=== PATIENT | male | born 1960 | race Caucasian/White ===

== ENCOUNTER → 2018-08-28 | Outpatient (REF) | payer MEDICARE, MEDICAID ==
[2018-08-28 18:21] LABS: BASO % 0.7 % (0.0-1.0); EOS # 0.1 10^3/uL (0.0-0.50); EOS % 2.3 % (0.0-3.0); HEMATOCRIT 43.2 % (42.0-52.0); HEMOGLOBIN 14.1 g/dl (13.5-17.5); IMMATURE GRANULOCYTE % 0.7 % (0-3.0); LYMPH # 1.4 10^3/uL (1.5-4.5); LYMPH % 25.1 % (24.0-44.0); MEAN CORPUSCULAR HEMOGLOBIN 30.1 pg (27.0-33.0); MEAN CORPUSCULAR HGB CONC 32.6 g/dl (32.0-36.5); MEAN CORPUSCULAR VOLUME 92.3 fl (80.0-96.0); MONO # 0.5 10^3/uL (0.0-0.8); MONO % 9.3 % (0.0-5.0); NEUTROPHILS # 3.5 10^3/uL (1.8-7.7); NEUTROPHILS % 61.9 % (36.0-66.0); PLATELET COUNT, AUTOMATED 297 10^3/uL (150-450); RED BLOOD COUNT 4.68 10^6/uL (4.30-6.10); WHITE BLOOD COUNT 5.6 10^3/uL (4.0-10.0)
[2018-08-28 18:31] LABS: INR 1.02; PARTIAL THROMBOPLASTIN TIME 26.8 SECONDS (25.4-37.6); PROTHROMBIN TIME 13.5 SECONDS (12.1-14.4)
[2018-08-28 20:06] LABS: ALBUMIN 3.8 GM/DL (3.2-5.2); ALBUMIN/GLOBULIN RATIO 1.23 (1.00-1.93); ALKALINE PHOSPHATASE 64 U/L (45-117); ALT/SGPT 45 U/L (12-78); ANION GAP 10 MEQ/L (8-16); AST/SGOT 23 U/L (7-37); BILIRUBIN,TOTAL 0.8 MG/DL (0.2-1.0); BLOOD UREA NITROGEN 22 MG/DL (7-18); CALCIUM LEVEL 8.6 MG/DL (8.5-10.1); CARBON DIOXIDE LEVEL 26 MEQ/L (21-32); CHLORIDE LEVEL 105 MEQ/L (98-107); CREATININE FOR GFR 1.17 MG/DL (0.70-1.30); GLOMERULAR FILTRATION RATE > 60.0 (>56); GLUCOSE, FASTING 130 MG/DL (70-100); POTASSIUM SERUM 4.1 MEQ/L (3.5-5.1); SODIUM LEVEL 141 MEQ/L (136-145); TOTAL PROTEIN 6.9 GM/DL (6.4-8.2)
[2018-09-04 08:06] LABS: ANGIOTENSIN 1 CONVERTING ENZYM 72 U/L (14-82); ASPERGILLUS FLAVUS ABY Negative (Neg:<1:1); ASPERGILLUS FUMIGATUS ABY Negative (Neg:<1:1); ASPERGILLUS NIGER ABY Negative (Neg:<1:1); BLASTOMYCES ANTIBODY LEVEL Negative (Neg:<1:1); COCCIDIOMYCOSIS ANTIBODY 0.7 IV (<=0.9); CRYPTOCOCCUS ANTIGEN SER Negative (Negative); HISTOPLASMOSIS ANTIBODY Negative (Neg:<1:1)
[2018-09-04 08:06] LABS: VITAMIN D 1,25 DIHYDROXY 28.8 pg/mL (19.9-79.3)
== END ==
LOC: M LAB REF 16:55
DX: R59.0 Localized enlarged lymph nodes (principal)
CPT/HCPCS: 80053

== ENCOUNTER 2018-09-09 06:17 | Day surgery (SDC) | payer MEDICARE, MEDICAID ==
[~2018-09-09 06:17] MED LIST: LIDOCAINE 1% MDV 20ML VIAL SQ
[2018-09-09] MEDS: LR 1,000 ML IV (06:45)
[2018-09-09] MEDS: THROMBIN SOLN 20,000 UNITS KIT As Ordered (07:10)
[2018-09-09] MEDS: LIDOCAINE VISCOUS 2% SOLN 15ML UDC As Ordered (07:11)
[2018-09-09] MEDS: EPINEPHrine 1MG/10ML SYRINGE 1.5IN As Ordered (07:13)
[2018-09-09] MEDS: THROMBIN SOLN 5,000 UNITS VIAL As Ordered (07:13)
[2018-09-09] MEDS ORDERED: PROPOFOL 200 MG/20 ML VIAL As Ordered (07:20)
[2018-09-09] MEDS ORDERED: dexameTHASONE 4 MG/ML 1ML VIAL (J1100) As Ordered (07:20)
[2018-09-09] MEDS ORDERED: ROCURONIUM BROMIDE 50 MG/5 ML VIAL As Ordered (07:20)
[2018-09-09] MEDS ORDERED: LIDOCAINE 2% INJ 100 MG/5 ML SDV (FOR ANES.) As Ordered (07:20)
[2018-09-09] MEDS ORDERED: MIDAZOLAM INJ 2 MG/2 ML VIAL (J2250) As Ordered (07:21)
[2018-09-09] MEDS ORDERED: fentaNYL 100 MCG/2 ML INJECTION (J3010) As Ordered (07:21)
[2018-09-09] MEDS ORDERED: ONDANSETRON 4MG/2ML VIAL (J2405) As Ordered (08:13)
[2018-09-09] MEDS ORDERED: ePHEDrine SULFATE 25 MG/5 ML(5MG/ML) SYRINGE As Ordered ×2 (08:14→08:15)
[2018-09-09] MEDS: CETACAINE SPRAY 5GM As Ordered (08:41)
[2018-09-09] MEDS ORDERED: GLYCOPYRROLATE INJ 0.2 MG/ML 2 ML VIAL As Ordered (08:41)
[2018-09-09] MEDS ORDERED: NEOSTIGMINE 10 MG/10 ML VIAL (J2710) As Ordered (08:41)
[2018-09-09] MEDS: LIDOCAINE 1% SDV INJ 30 ML VIAL As Ordered (09:11)
[2018-09-09] MEDS ORDERED: LR 1,000 ML IV (09:45)
[2018-09-09] MEDS ORDERED: fentaNYL 100 MCG/2 ML INJECTION (J3010) IV (09:45)
[2018-09-09] MEDS ORDERED: ONDANSETRON 4MG/2ML VIAL (J2405) IV (09:45)
[2018-09-09] MEDS ORDERED: PERCOCET 5MG/325MG TAB PO (09:45)
[2018-09-09 11:08] LABS: APPEARANCE HAZY (CLEAR); BAL WBC 14 CELLS/uL (0-10); COLOR PINK (COLORLESS); DILUTION FACTOR 1; SOURCE RIGHT MIDDLE LOBE; WBC BAL COUNTED 13
[2018-09-09 11:09] LABS: BAL DIFF IF INDICATED? NO (NO)
== END 2018-09-09 11:40 | disposition home or self-care (01) ==
LOC: M SDC 06:17
DX: R59.0 Localized enlarged lymph nodes (principal); G47.33 Obstructive sleep apnea (adult) (pediatric); I25.10 Atherosclerotic heart disease of native coronary artery without angina pectoris; Z98.61 Coronary angioplasty status; Z95.1 Presence of aortocoronary bypass graft; E78.2 Mixed hyperlipidemia; E78.5 Hyperlipidemia, unspecified; I10 Essential (primary) hypertension; I25.2 Old myocardial infarction; I27.20 Pulmonary hypertension, unspecified; E11.9 Type 2 diabetes mellitus without complications; F32.9 Major depressive disorder, single episode, unspecified; Z79.899 Other long term (current) drug therapy
CPT/HCPCS: 31623

== ENCOUNTER 2018-12-24 12:22 | Day surgery (SDC) | payer MEDICAID, MEDICARE ==
[~2018-12-24] VITALS: Ht 177.8 cm; Wt 93.4 kg
[~2018-12-24 12:22] MED LIST changes: +ALBUTEROL SULFATE 2.5 MG/0.5 ML INH NEB SOLN INH ONE; +ASPI1TAB PO; +ATOR80TA59 PO; +BISO5TAB5 PO; +CLOP75TA2 PO; +D5W 1,000 ML IV SCH; +ENTR1TAB PO; +EZET10TA PO; +INCR1INH IN; +ISOS120T4 PO; -LIDOCAINE 1% MDV 20ML VIAL SQ; +LIDOCAINE 2% INJ 100 MG/5 ML SDV (FOR ANES.) As Ordered ONE; +LIDOCAINE 4% INJ 5 ML AMP NEB ONE; +MIDAZOLAM INJ 2 MG/2 ML VIAL (J2250) As Ordered ONE; +ONDANSETRON 4MG/2ML VIAL (J2405) As Ordered ONE; +PRAL1INJ SC; +PROPOFOL 200 MG/20 ML VIAL As Ordered ONE; +RANO5TAB PO; +ROCURONIUM BROMIDE 50 MG/5 ML VIAL As Ordered ONE; +SERT-155 PO; +SPIR-10 PO; +VITA500046 PO; +dexameTHASONE 4 MG/ML 1ML VIAL (J1100) As Ordered ONE; +fentaNYL 100 MCG/2 ML INJECTION (J3010) As Ordered ONE
[2018-12-24] MEDS ORDERED: LIDOCAINE 1% SDV INJ 30 ML VIAL As Ordered ONE (13:05)
[2018-12-24] MEDS ORDERED: LIDOCAINE 4% TOPICAL SOLN 50 ML BTL As Ordered ONE (13:05)
[2018-12-24] MEDS ORDERED: EPINEPHrine 1MG/10ML SYRINGE 1.5IN As Ordered ONE (13:05)
[2018-12-24] MEDS ORDERED: THROMBIN SOLN 20,000 UNITS KIT As Ordered ONE (13:05)
[2018-12-24] MEDS ORDERED: CETACAINE SPRAY 5GM As Ordered ONE (13:06)
[2018-12-24] MEDS ORDERED: LIDOCAINE VISCOUS 2% SOLN 15ML UDC As Ordered ONE (13:06)
[2018-12-24] MEDS ORDERED: ALBUTEROL SULFATE 2.5 MG/0.5 ML INH NEB SOLN INH STA (13:07)
--- NOTE | 2018-12-24 15:03 | ROOR ---
Patient Name: Darius Muhammad Procedure Date: 12/24/2018 1:25 PM Date of : 1960 Admit Type: Outpatient Age: 58 Room: [facility] Note Status: Finalized Attending MD: Tala Grimm MD Procedure: Bronchoscopy Indications: Suspicious right middle lobe lesion, Hilar lymphadenopathy, Mediastinal adenopathy, Paratracheal adenopathy Providers: Tala Grimm MD (Doctor) Referring MD: 1. No Referring Physician 1. No Referring Physician, Admin. (Referring MD) Requesting Physician: Medicines: Albuterol nebulizer 3 mg, Lidocaine 4% Nebulizer 3 mL, Lidocaine 1% applied to the tracheobronchial tree mL, Sedation Required Anesthesia Staff Assistance, Cetacaine topical Complications: No immediate complications. Estimated blood loss: Minimal Procedure: Pre-Anesthesia Assessment: - Prior to the procedure, a History and Physical was performed, and patient medications and allergies were reviewed. The patient's tolerance of previous anesthesia was also reviewed. The risks and benefits of the procedure and the sedation options and risks were discussed with the patient. All questions were answered, and informed consent was obtained. Prior Anticoagulants: The patient has taken aspirin, last dose was day of procedure. ASA Grade Assessment: III - A patient with severe systemic disease. After reviewing the risks and benefits, the patient was deemed in satisfactory condition to undergo the procedure. The Bronchoscope was introduced through the mouth, via face mask and advanced to the tracheobronchial tree of both lungs. The procedure was accomplished without difficulty. The patient tolerated the procedure well. Moderate Sedation: see Anesthesia records for more complete details Findings: Bilateral Lung Abnormalities: Edematous mucosa was found in the right middle lobe orifice with narrowing of right middle lobe oriface. The lesion has a benign appearance. The airway is moderately narrowed. The lesion was successfully traversed. Edematous mucosa was found in the lingular segment of the left upper lobe. BAL was performed in the RML of the lung and sent for cell count, bacterial culture and fungal & AFB analysis and cytology. The return was cloudy. There were no mucoid plugs in the return fluid. Endobronchial biopsies were performed in the right middle lobe using forceps and sent for routine cytology. Endobronchial biopsies were performed in the lingula segment of the left upper lobe using forceps and sent for routine cytology. Washings were obtained in the left upper lobe and sent for bacterial culture and fungal & AFB analysis and cytology. The return was blood-tinged. Impression: - Suspicious right middle lobe lesion - Hilar lymphadenopathy - Mediastinal adenopathy - Paratracheal adenopathy - Edema was present in the right middle lobe with narrowing of the right middle lobe oriface. - Edema was present in the lingular segment of the left upper lobe. - Bronchoalveolar lavage was performed in RML. - An endobronchial biopsy was performed in RML. - Washings were obtained AXEL. - An endobronchial biopsy was performed lingula. Recommendation: - Patient has a contact number available for emergencies. The signs and symptoms of potential delayed complications were discussed with the patient. Return to normal activities tomorrow. Written discharge instructions were provided to the patient. - Follow up with bronchoscopist as previously scheduled. Attending Participation: I personally performed the entire procedure. Tala Grimm MD 12/24/2018 3:02:31 PM Number of Addenda: 0 Note Initiated On: 12/24/2018 1:25 PM
[2018-12-24 15:25] VITALS: BP 103/56
[2018-12-24 16:13] LABS: APPEARANCE HAZY (CLEAR); COLOR COLORLESS (COLORLESS); SOURCE RIGHT MIDDLE LOBE
[2018-12-24 18:24] LABS: MONOCYTES/MACROPHAGES, BAL 39 %
== END 2018-12-24 15:46 | disposition home or self-care (01) ==
LOC: M OPP 12:22
PROVIDERS: ATTEND Internal Medicine Pulmonary Disease
DX: R91.8 Other nonspecific abnormal finding of lung field (principal); R89.0 Abnormal level of enzymes in specimens from other organs, systems and tissues; R09.89 Other specified symptoms and signs involving the circulatory and respiratory systems; J98.4 Other disorders of lung; I51.9 Heart disease, unspecified; I25.2 Old myocardial infarction; G47.33 Obstructive sleep apnea (adult) (pediatric); R06.00 Dyspnea, unspecified; Z79.82 Long term (current) use of aspirin; Z79.899 Other long term (current) drug therapy; Z88.2 Allergy status to sulfonamides; Z95.5 Presence of coronary angioplasty implant and graft
CPT/HCPCS: 31624; 31625; 87070; 87102; 87116; 87205; 87206; 88104; 88108; 88305; 88312; 88313; 89051; J1100; J2250; J2405; J3010

== ENCOUNTER → 2019-06-17 | Outpatient (CLI) | payer MEDICARE ==
[~2019-06-17] MED LIST changes: -ALBUTEROL SULFATE 2.5 MG/0.5 ML INH NEB SOLN INH ONE; -ASPI1TAB PO; +ASPI81TA26 PO; -BISO5TAB5 PO; +BISO5TAB9 PO; -D5W 1,000 ML IV SCH; -EZET10TA PO; +EZET10TA21 PO; -ISOS120T4 PO; +ISOS120T7 PO; -LIDOCAINE 2% INJ 100 MG/5 ML SDV (FOR ANES.) As Ordered ONE; -LIDOCAINE 4% INJ 5 ML AMP NEB ONE; -MIDAZOLAM INJ 2 MG/2 ML VIAL (J2250) As Ordered ONE; -ONDANSETRON 4MG/2ML VIAL (J2405) As Ordered ONE; -PROPOFOL 200 MG/20 ML VIAL As Ordered ONE; +RANO500T7 PO; -RANO5TAB PO; -ROCURONIUM BROMIDE 50 MG/5 ML VIAL As Ordered ONE; -dexameTHASONE 4 MG/ML 1ML VIAL (J1100) As Ordered ONE; -fentaNYL 100 MCG/2 ML INJECTION (J3010) As Ordered ONE
--- NOTE | 2019-06-18 02:03 | REP ---
Clinical: Sarcoidosis. Technique: PA and lateral. Comparison: 09/09/2018. Findings: Examination is limited by technique including underpenetration and poor inspiratory effort. Chronic interstitial changes are suggested and similar to prior examination. No obvious effusion or pneumothorax. Mild cardiomegaly cannot be excluded. Evidence of prior sternotomy. No obvious mediastinal adenopathy. Skeletal structures are intact. Impression: Limited examination suggesting stable chronic changes. No definite acute consolidation or obvious adenopathy. Electronically Signed by Waldo Goncalves MD 06/18/2019 01:54 A
== END ==
LOC: M SMT 11:50
PROVIDERS: ATTEND Internal Medicine Pulmonary Disease
DX: D86.0 Sarcoidosis of lung (principal)

== ENCOUNTER → 2022-07-04 | Outpatient (CLI) | payer MEDICARE ==
[~2022-07-04] MED LIST changes: +ALIR75PE3 SC; +BISO5TAB14 PO; -BISO5TAB9 PO; -PRAL1INJ SC; -SERT-155 PO; +SERT50TA29 PO
[2022-07-04 11:40] LABS: BLOOD UREA NITROGEN 20 MG/DL (7-18); CALCIUM LEVEL 9.7 MG/DL (8.8-10.2); CARBON DIOXIDE LEVEL 28 MEQ/L (21-32); CHLORIDE LEVEL 105 MEQ/L (98-107); CREATININE FOR GFR 1.11 MG/DL (0.70-1.30); GLOMERULAR FILTRATION RATE > 60.0 (>49); GLUCOSE, FASTING 117 MG/DL (70-100); NT-PRO BNP 287 PG/ML (<125); POTASSIUM SERUM 4.2 MEQ/L (3.5-5.1); SODIUM LEVEL 138 MEQ/L (136-145)
== END ==
LOC: M LAB 10:18
PROVIDERS: ATTEND Internal Medicine Cardiovascular Disease
DX: I50.42 Chronic combined systolic (congestive) and diastolic (congestive) heart failure (principal)

== ENCOUNTER → 2022-07-23 | Outpatient (CLI) | payer MEDICARE | LOC: M PLAIMG 12:28 | PROVIDERS: ATTEND Internal Medicine Critical Care Medicine | DX: D86.0 Sarcoidosis of lung (principal); R59.0 Localized enlarged lymph nodes; Z95.0 Presence of cardiac pacemaker ==